=== PATIENT | female | born 1955 | race Caucasian/White ===

== ENCOUNTER 2023-11-10 13:50 | Day surgery (SDC) | payer OTHER, MEDICAID, SELFPAY ==
--- NOTE | 2023-11-10 | PATH_ITS ---
[facility] Accession Number: [id number] No. of containers..03 Tissue . 01 Material submitted: . PART A: colon - CECUM POLYP PART B: colon - TRANSVERSE POLYP X4 PART C: colon - RECTOSIGMOID POLYP . 01 Diagnosis: A. CECUM, POLYP: Colonic mucosa with surface hyperplastic-type changes. Negative for dysplasia and malignancy. Additional levels were examined. . B. TRANSVERSE COLON, POLYP X4: Tubular adenoma in four of five fragments. . C. RECTOSIGMOID COLON, POLYP: Hyperplastic polyp. MRV 11/12/2023 1444 Local . 01 Electronically signed: . Idalia Hill MD, Pathologist NPI- [id number] . 01 Gross description: . Part A: CECUM POLYP: Received in formalin are 2 fragment(s) of casey, soft tissue measuring 0.1 x 0.1 x 0.1 cm to 0.3 x 0.2 x 0.2 cm submitted entirely in 1 cassette(s) Part B: TRANSVERSE POLYP X4: Received in formalin are multiple fragment(s) of casey, soft tissue measuring 0.1 x 0.1 x 0.1 cm to 0.8 x 0.6 x 0.5 cm submitted entirely in 1 cassette(s) Part C: RECTOSIGMOID POLYP: Received in formalin is 1 fragment(s) of casey, soft tissue measuring 0.3 x 0.2 x 0.2 cm submitted entirely in 1 cassette(s) /ELIANE 11/11/2023 2218 Local . 01 Pathologist provided ICD-10: D12.3 . 01 CPT . 217885, [id number], [id number] Specimen Comment: A courtesy copy of this report has been sent to [phone] Performed at: 01 [facility] [address], [place], [place] [id number] MD Daryl Pitts MD Phone: [phone]
[2023-11-10 14:28] VITALS: BP 142/67; PULSE 84; RESP 14; TEMP 36.6; O2SAT 95; BMI 35.9
--- NOTE | 2023-11-10 14:32 | PM.HP.1 ---
History of Present Illness History of Present Illness Date Patient Seen: 11/10/23 Time Patient Seen: 14:32 Chief complaint: SDC Narrative: 67-year-old female with a history of colon polyps. Here for surveillance colonoscopy. I have not seen any of her prior endoscopies nor pathology results. She indicates she is on a Q 1 year surveillance protocol. Meds Home Medications and Allergies Allergies Allergy/AdvReac Type Severity Reaction Status Date / Time ibuprofen Allergy Unknown Anaphylaxis Verified 11/10/23 14:26 Sulfa (Sulfonamide Allergy Unknown Verified 09/26/23 13:12 Antibiotics) Latex, Natural Rubber Allergy Rash Verified 11/10/23 14:25 shellfish derived AdvReac Verified 11/10/23 14:26 Review of Systems Review of Systems ROS: Yes All systems reviewed with the patient and are negative except as otherwise documented Exam Const General: cooperative HENMT Head: normal to inspection Eyes General: appearance normal, both eyes and all related structures Neck Neck: normal visual inspection Chest Chest: normal inspection of the chest Resp Effort & Inspection: normal respiratory effort Cardio Rate: regular rate GI Inspection: normal to inspection Skin General: no rashes or lesions noted Neuro General: patient alert and patient awake Extrem General: normal to inspection and no pedal edema Psych Appearance: grossly normal Assessment & Plan Assessment & Plan narrative: 67-year-old female with a history of multiple unknown histology colon polyps. Colonoscopy is pursued today.
--- NOTE | 2023-11-10 14:33 | PM.PREOP ---
Pre-operative Note Interval Note History & Physical reviewed/Exam performed by Physician: Yes Changes to H&P: No ASA Class (for procedural sedation): II
[2023-11-10] MEDS: LACTATED RINGERS 1,000 ML 42 ML IV (14:56)
--- NOTE | 2023-11-10 15:41 | PM.OP.COLON ---
Operative Date/Time/Diagnoses Date of procedure: 11/10/23 Time of procedure: 15:41 Pre-op diagnosis: Personal history of colon polyps Post-op diagnosis: same Procedure & Clinicians Study performed: Colonoscopy with hot snare polypectomy and cold forceps polypectomies Same procedure as scheduled: Yes Indications: Personal history of colon polyps Surgeon: Julio Pérez Procedure Notes SCOAP/Timeout: Done Procedure in detail: After the risks and benefits were explained, written and verbal informed consent was obtained. The patient was brought into the procedure room and placed into the left lateral decubitus position. Please see anesthesia notes for sedation details. Digital rectal examination was accomplished. The scope was introduced into the patient and advanced under direct visualization to the cecum as identified by the appendiceal orifice and ileocecal valve. The scope was slowly withdrawn to carefully examine the mucosa for any defects or lesions. Comprehensive imaging was accomplished throughout the rectum including the dentate line. The colon was decompressed, the scope was then removed from the patient who tolerated the procedure well. Pediatric colonoscope Bowel prep fair; this required copious amounts of irrigation and suction to render it adequate. Despite these efforts, small polyps could have been overlooked in many locations. Scope withdrawal time: 22 minutes Sedation minutes: 34 Complications: none Impression: Patient had a very lax anal sphincter mechanism. Minimal internal hemorrhoids. There were some scattered classic hyperplastic appearing polyps in the rectum and rectosigmoid. One of the larger ones measuring perhaps 6-7 mm sessile in nature was removed with hot snare. In the cecum there was a diminutive polyp removed with cold forceps. In the transverse colon there were 3 diminutive polyps removed with cold forceps and a larger 7 mm sessile polyp removed with hot snare. Within the limitations of bowel prep, no overt additional significant pathology. Diverticulosis was noted in the left colon. Endoscopic diagnosis 1. Multiple colon polyps 2. Diverticulosis 3. Slightly suboptimal bowel prep Post-procedure Plan for aftercare: 1. Await histology. 2. Repeat colonoscopy in the next 1-2 years with an extended prep. Disposition: PACU
[2023-11-10 15:43] VITALS: BP 106/69; PULSE 73; RESP 12; TEMP 36.7; O2SAT 89
[2023-11-10 15:48] VITALS: BP 124/74; PULSE 76; RESP 11; O2SAT 94
[2023-11-10 15:50] VITALS: BP 105/73; PULSE 79; RESP 16; TEMP 35.9; O2SAT 95
== END 2023-11-10 16:02 | disposition home or self-care (01) ==
PROVIDERS: PCP Family Medicine; Referring Provider Internal Medicine Gastroenterology; Visit Provider Internal Medicine Gastroenterology
PROC: 0DJD8ZZ Inspection of Lower Intestinal Tract, Via Natural or Artificial Opening Endoscopic (ICD-10-PCS; CPT 45378; principal; 2023-11-10 14:30)
DX: Z12.11 Encounter for screening for malignant neoplasm of colon (principal); K57.30 Diverticulosis of large intestine without perforation or abscess without bleeding; K63.5 Polyp of colon; D12.3 Benign neoplasm of transverse colon; D12.7 Benign neoplasm of rectosigmoid junction
CPT/HCPCS: 45385; 45380; J2704